=== PATIENT | female | born 1955 | race African-American/Black ===

== ENCOUNTER 2017-10-31 19:08 | Emergency (ER) | payer OTHER ==
[2017-10-31 19:30] VITALS: TEMP 98.7; BMI 24.4
--- NOTE | 2017-10-31 19:48 | PDOC ---
History of Present Illness - General History Source: Patient Exam Limitations: No Limitations - History of Present Illness Initial Comments: 10/31/17 20:02 The patient is a 62 year old female with a significant PMH of diabetes who presents to the emergency department s/p fall today. The patient states she tripped on a track while running and is now complaining of pain to the right forearm and mild right hip pain. The patient denies any pain to the LUE or lower extremities. The patient denies headstrike or LOC. The patient was able to ambulate after the fall. The patient denies chest pain, shortness of breath, headache and dizziness. Denies fever, chills, nausea, vomit, diarrhea and constipation. Denies dysuria, frequency, urgency and hematuria. Allergies: NKA Past surgical history: None reported. Social history: No reported alcohol, drug, or cigarette use. <Casi Lu - Last Filed: 10/31/17 20:02> <Cathy Otto - Last Filed: 11/01/17 00:43> - General Chief Complaint: Pain, Acute Stated Complaint: FALL Time Seen by Provider: 10/31/17 19:28 Past History <Casi Lu - Last Filed: 10/31/17 20:02> - Suicide/Smoking/Psychosocial Hx Smoking History: Never smoked Hx Alcohol Use: No Drug/Substance Use Hx: No <Cathy Otto - Last Filed: 11/01/17 00:43> - Past Medical History Allergies/Adverse Reactions: Allergies Allergy/AdvReac Type Severity Reaction Status Date / Time No Known Allergies Allergy Verified 10/31/17 19:42 Home Medications: Ambulatory Orders Glipizide [Glipizide ER] 10 mg PO BID 10/31/17 Pioglitazone HCl/Metformin HCl [Actoplus Met 15 mg-850 mg Tab] 1 each PO BID Ramipril 10 mg PO BID 10/31/17 Review of Systems - Review of Systems Able to Perform ROS?: Yes Comments:: 10/31/17 20:03 A complete review of 10 out of 10 review of systems is taken and is negative apart from what is previously mentioned below and in the HPI. <Casi Lu - Last Filed: 10/31/17 20:02> *Physical Exam - Vital Signs Last Vital Signs Temp Pulse Resp BP Pulse Ox 98.7 F 108 H 18 127/127 98 10/31/17 19:15 10/31/17 19:15 10/31/17 19:15 10/31/17 19:15 10/31/17 19:15 - Physical Exam Comments: 10/31/17 20:03 General Appearance: No acute distress, well nourished, well developed Head: Atraumatic Eyes: Pupils equal reactive round, extraocular movement intact Neck: Supple; No nuchal rigidity Cardiac: Regular rate and rhythm, no murmurs, no rubs, no gallops Lungs: Clear to auscultation bilateral, good air movement bilaterally Abdomen: Soft, nondistended, normal bowel sounds, nontender to palpation. Extremities: (+) Right humerus is tender and swollen. Wrist is nontender. No cyanosis or clubbing. Skin: Warm and dry, no rashes or lesions, no rash, no petechiae Neuro: AOX3; Cranial Nerves 2-12 grossly intact, Strength intact to all extremities, Sensation intact to all extremities, gait normal Psych: Normal mood, normal affect <Casi Lu - Last Filed: 10/31/17 20:02> - Vital Signs Last Vital Signs Temp Pulse Resp BP Pulse Ox 98.7 F 108 H 18 127/127 98 10/31/17 19:15 10/31/17 19:15 10/31/17 19:15 10/31/17 19:15 10/31/17 19:15 <Cathy Otto - Last Filed: 11/01/17 00:43> Medical Decision Making - Medical Decision Making 11/01/17 00:32 62-year-old female who was jogging on the track fell onto her right side and has complaint of right upper arm pain. She also has complaint of right elbow pain. Patient does not take any anticoagulation. She denies hitting her head or having any loss of consciousness. She is ambulating with ease in the emergency department. Plain film of her right shoulder and humerus shows a mid shaft comminuted humeral fracture Was concerned about subtle elbow fracture and so therefore, CT of the right elbow was done and the findings are either it is negative for fracture or dislocation. There was no joint effusion appreciated. No obvious tendon ligamentous abnormalities. Patient placed in a sling. Dr. Hsu was consulted and the patient will follow-up in the office <Cathy Otto - Last Filed: 11/01/17 00:43> *DC/Admit/Observation/Transfer - Attestations Scribe Attestion: 10/31/17 20:05 Documentation prepared by Casi Lu, acting as medical observer for Cathy Otto MD. <Casi Lu - Last Filed: 10/31/17 20:02> <Cathy Otto - Last Filed: 11/01/17 00:43> Diagnosis at time of Disposition: Humeral shaft fracture Qualifiers: Encounter type: initial encounter Fracture type: closed Fracture morphology: comminuted Fracture alignment: displaced Laterality: right Qualified Code(s): S42.351A - Displaced comminuted fracture of shaft of humerus, right arm, initial encounter for closed fracture - Discharge Dispostion Disposition: HOME Condition at time of disposition: Stable - Referrals Referrals: Humble Garcia MD [Staff Physician] - Alexys Hsu MD [Staff Physician] - - Patient Instructions Printed Discharge Instructions: DI for Humeral Fracture Additional Instructions: Please wear your sling for comfort Call the orthopedist in the morning and make an appointment to be seen as soon as possible (tomorrow or Wednesday) Take your pain medication if needed Return for any worsening symptoms
[2017-10-31] MEDS ORDERED: morphine CARPU-JECT 2 MG/1 ML DISP.SYRIN IM STA (20:58)
[2017-10-31 21:59] VITALS: BP 154/66; PULSE 90
[2017-10-31] MEDS ORDERED: morphine SULFATE 4 MG/ML VIAL ONE ×2 (22:04→23:01)
[2017-10-31] MEDS ORDERED: morphine CARPU-JECT 2 MG/1 ML DISP.SYRIN IM ONE (23:00)
== END 2017-11-01 01:15 | disposition home or self-care (01) ==
LOC: JER 19:08
PROC: 3E033NZ Introduction of Analgesics, Hypnotics, Sedatives into Peripheral Vein, Percutaneous Approach (ICD-10-PCS; principal; 2017-10-31)
PROC: 3E033NZ Introduction of Analgesics, Hypnotics, Sedatives into Peripheral Vein, Percutaneous Approach (ICD-10-PCS; 2017-10-31)
DX: S42.351A Displaced comminuted fracture of shaft of humerus, right arm, initial encounter for closed fracture (principal); W18.39XA Other fall on same level, initial encounter; Y93.59 Activity, other involving other sports and athletics played individually; Y92.39 Other specified sports and athletic area as the place of occurrence of the external cause; Y99.8 Other external cause status
CPT/HCPCS: 73030-TC-RT-FY; 73060-TC-RT-FY; 73070-TC-RT-FY; 73200-TC-RT; 96372; 99283-25